=== PATIENT | male | born 2000 | race Caucasian/White ===

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

== ENCOUNTER 2020-04-15 06:14 | Emergency (ER) | payer SELFPAY ==
[~2020-04-15] VITALS: Ht 175.3 cm; Wt 63.6 kg
[2020-04-15 06:22] VITALS: TEMP 97.7
[2020-04-15 07:02] LABS: BASO % 0.5 % (0.0-2.0); EOS # 0.3 (0.0-0.7); EOS % 3.6 % (0-4.0); GRAN # 3.2 (1.4-6.5); GRAN % 42.2 % (42.2-75.2); HEMOGLOBIN 14.7 g/dl (12.5-16.1); LYMPH # 3.1 (1.2-3.4); LYMPH % 41.5 % (20.0-51.0); MEAN CELL VOLUME 91 fl (80.0-95.0); MEAN CORPUSCULAR HEMOGLOBIN 32 pg (26.0-32.0); MEAN CORPUSCULAR HGB CONC 35 g/dl (33.0-37.0); MEAN PLATELET VOLUME 10.5 fl (7.4-10.4); MONO # 0.9 (0.1-0.6); MONO % 12.1 % (1.7-9.3); PLATELET COUNT 215 K/mm3 (130-400); RED BLOOD COUNT 4.62 M/mm3 (4.20-5.60); REDCELL DISTRIBUTION WIDTH-CV 12.7 % (11.5-14.5)
[2020-04-15 07:12] LABS: ALBUMIN 4.2 gm/dL (3.5-5.0); BILIRUBIN,TOTAL 0.9 mg/dL (0.0-1.0); CALCIUM 9.4 mg/dL (8.4-10.2); CREATININE, serum 0.68 (0.66-1.25); POTASSIUM 4.1 mmol/L (3.4-5.0); TOTAL PROTEIN 7.5 gm/dL (6.4-8.2)
[2020-04-15 08:00] VITALS: BP 128/87; PULSE 68
== END 2020-04-15 08:00 | disposition home or self-care (01) ==
LOC: COL.ER 06:14
PROVIDERS: Emergency Medicine
DX: R05 Cough (principal); R06.02 Shortness of breath

== ENCOUNTER 2021-05-20 20:40 | Emergency (ER) | payer SELFPAY ==
[~2021-05-20] VITALS: Ht 175.3 cm; Wt 63.6 kg
[2021-05-20 20:42] VITALS: TEMP 97.5
[2021-05-20 21:37] VITALS: BP 126/73; PULSE 81
== END 2021-05-20 21:48 | disposition home or self-care (01) ==
LOC: COL.ER 20:40
DX: R05.9 Cough, unspecified (principal)